=== PATIENT | female | born 1955 | race Caucasian/White ===

== ENCOUNTER → 2017-12-15 | Outpatient (CLI) | payer OTHER ==
--- NOTE | 2017-12-16 09:20 | MM ---
Reason for exam: screening (asymptomatic). Last mammogram was performed 2 years and 4 months ago. History: Patient is postmenopausal and had first child at age 31. Physical Findings: A clinical breast exam by your physician is recommended on an annual basis and results should be correlated with mammographic findings. MG Screening Mammo w CAD Bilateral CC and MLO view(s) were taken. XCCL view(s) were taken of the left breast. Prior study comparison: July 12, 2011, bilateral digital screening mammo w/CAD. The breast tissue is heterogeneously dense. This may lower the sensitivity of mammography. No significant changes when compared with prior studies. ASSESSMENT: Benign, BI-RAD 2 RECOMMENDATION: Routine screening mammogram of both breasts in 1 year.
--- NOTE | 2017-12-16 18:17 | BD ---
EXAMINATION TYPE: Axial Bone Density DATE OF EXAM: 12/15/2017 COMPARISON: NONE CLINICAL HISTORY: 62-year-old female disorder bone density, postmenopausal screening Height: 63 Weight: 134.4 FRAX RISK QUESTIONS: Alcohol (3 or more units per day): no Family History (Parent hip fracture): yes Glucocorticoids (More than 3mos): no (Ex: prednisone, prednisolone, methylprednisolone, dexamethasone, and hydrocortisone). History of Fracture in Adulthood: no Secondary Osteoporosis: 1. Type 1 Diabetes: no 2. Hyperthyroidism: no 3. Menopause before 45: yes 4. Malnutrition: no 5. Chronic liver disease: no Rheumatoid Arthritis: no Current Tobacco Use: yes RISK FACTORS HISTORY OF: Active: yes Diet low in dairy products/other sources of calcium: no Postmenopausal woman: age 39 Lost more than 2 inches in height since high school: yes MEDICATIONS: Thyroid Medications: thyroid Additional History: EXAM MEASUREMENTS: Bone mineral densitometry was performed using the [employer] System. Bone mineral density as measured about the Lumbar spine is: ----- L1-L4(G/cm2): 1.025 T Score Values are as follows: ----- L2: -1.9 ----- L3: -1.0 ----- L4: -0.4 ----- L1-L4: -1.3 Bone mineral density : baseline Bone mineral density about the R hip (g/cm2): 0.906 Bone mineral density about the L hip (g/cm2): 0.923 T Score values are as follows: -----R Neck: -0.9 -----L Neck: -0.8 -----R Total: -1.4 -----L Total: -1.2 Bone mineral density : baseline IMPRESSION: Osteopenia (T Score between -2.5 and -1). There is slightly increased risk of fracture and the patient may be considered for treatment. Re-Screen 2-5 years. NOTE: T-SCORE=SD OF THE YOUNG ADULT MEAN.
== END | disposition home or self-care (01) ==
LOC: RADMAMWWP 07:04
PROVIDERS: ATTEND Obstetrics & Gynecology
DX: Z12.31 Encounter for screening mammogram for malignant neoplasm of breast (principal); M85.80 Other specified disorders of bone density and structure, unspecified site
CPT/HCPCS: 77067; 77080

== ENCOUNTER 2020-08-26 18:04 | Emergency (ER) | payer OTHER ==
[2020-08-26 18:18] VITALS: TEMP 97.9
[2020-08-26] MEDS ORDERED: FLUORESCEIN STRIPS 1 MG STRIP RIGHT EYE STA (18:30)
[2020-08-26] MEDS ORDERED: PROPARACAINE 0.5% OPHTH DROPS 15 ML BTL RIGHT EYE STA (18:31)
[2020-08-26] MEDS ORDERED: ERYTHROMYCIN 5 MG/GM OPHTH OINT 1 GM TUBE RIGHT EYE STA (19:13)
[2020-08-26] MEDS ORDERED: DIPH,PERTUS(ACELL)TETVAC-LF 0.5 ML VIAL IM ONE (19:13)
--- NOTE | 2020-08-26 19:22 | ED ---
General Adult HPI - General Chief complaint: Eye Problems Stated complaint: R eye injury Time Seen by Provider: 08/26/20 18:21 Source: patient, RN notes reviewed Mode of arrival: ambulatory Limitations: no limitations - History of Present Illness Initial comments: 65-year-old female presents to the emergency room for chief complaint of right eye injury. Patient states she was playing with her son's dog when the back of its head hit her right eye. She states it is slightly painful and burning. Denies any visual changes. Denies any difficulty or pain with moving her eye. Denies any tenderness around the orbit.Patient has no other complaints at this time including shortness of breath, chest pain, abdominal pain, nausea or vomiting, headache, or visual changes. - Related Data Allergies Allergy/AdvReac Type Severity Reaction Status Date / Time codeine Allergy Rash/Hives Verified 08/26/20 18:19 Penicillins Allergy Rash/Hives Verified 08/26/20 18:19 Review of Systems ROS Statement: Those systems with pertinent positive or pertinent negative responses have been documented in the HPI. ROS Other: All systems not noted in ROS Statement are negative. Past Medical History Past Medical History: Thyroid Disorder History of Any Multi-Drug Resistant Organisms: None Reported Past Surgical History: No Surgical Hx Reported Past Psychological History: No Psychological Hx Reported Smoking Status: Current every day smoker Past Alcohol Use History: Rare Past Drug Use History: None Reported General Exam Limitations: no limitations General appearance: alert, in no apparent distress Head exam: Present: atraumatic Eye exam: Present: normal appearance, PERRL, EOMI, conjunctival injection (Conjunctival hemorrhage noted along the medial aspect of the right conjunctiva). Absent: scleral icterus, other (No hyphema. Pupil is round and reactive.) ENT exam: Present: normal exam Neck exam: Present: normal inspection, full ROM Respiratory exam: Present: normal lung sounds bilaterally. Absent: respiratory distress, wheezes Cardiovascular Exam: Present: regular rate, normal rhythm, normal heart sounds Course Vital Signs 08/26/20 18:16 Temperature 97.9 F Pulse Rate 95 Respiratory 18 Rate Blood Pressure 165/76 O2 Sat by Pulse 100 Oximetry Medical Decision Making - Medical Decision Making 65-year-old female presents to the emergency room for right eye pain. On exam patient does have subconjunctival hemorrhage noted to the medial aspect of the right eye as well as a burning sensation over the right eye. No tenderness along the orbit itself. No edema. Pupil is round and reactive. No teardrop pupil. No hyphema. Proparacaine was used to numb the eye and patient had resolution of the burning sensation. On examination with fluorescein and Wood's lamp she did have small abrasions noted at 12:00. Visual acuity was 20/20 OD 20/40 OS. Patient was given tetanus and erythromycin ointment for abrasions. Denies contact usage. Instructed to do warm compresses for subconjunctival hemorrhage. She will follow up with ophthalmology. She will return here for any worsening symptoms. Disposition Clinical Impression: Subconjunctival hemorrhage of right eye, Corneal abrasion Disposition: HOME SELF-CARE Condition: Good Instructions (If sedation given, give patient instructions): Corneal Abrasion (ED), Subconjunctival Hemorrhage (ED) Additional Instructions: Please use antibiotic ointment as directed. Apply warm compresses to the eye. Follow up with ophthalmology. If you have any worsening symptoms or visual changes return to the emergency room. Is patient prescribed a controlled substance at d/c from ED?: No Referrals: Tono Valenzuela MD [Primary Care Provider] - 1-2 days Gail Salmeron MD [STAFF PHYSICIAN] - 1-2 days Time of Disposition: 19:22
[2020-08-26 20:01] VITALS: BP 162/77; PULSE 62; RESP 20
== END 2020-08-26 20:01 | disposition home or self-care (01) ==
LOC: EC 18:04
DX: S05.01XA Injury of conjunctiva and corneal abrasion without foreign body, right eye, initial encounter (principal); H11.31 Conjunctival hemorrhage, right eye; F17.200 Nicotine dependence, unspecified, uncomplicated; Z88.0 Allergy status to penicillin; W54.1XXA Struck by dog, initial encounter
CPT/HCPCS: 90471; 90715; 99283

== ENCOUNTER → 2020-09-18 | Outpatient (CLI) | payer OTHER | END | disposition home or self-care (01) | CPT/HCPCS: 70480 ==

== ENCOUNTER 2022-03-22 23:47 | Observation (INO) | payer BC, OTHER ==
[2022-03-23] MEDS ORDERED: IPRATROPIUM-ALBUTEROL 3 ML NEB INHALATION STA (00:29)
[2022-03-23] MEDS ORDERED: diphenhydrAMINE 50 MG/ML 1 ML VIAL IVP STA (00:29)
[2022-03-23] MEDS ORDERED: DEXAMETHASONE SOD PHOSPHATE 10 MG/ML 1 ML VIAL IVP STA (00:29)
--- NOTE | 2022-03-23 01:08 | ED ---
SOB HPI - General Chief Complaint: Shortness of Breath Stated Complaint: Bronchitis Time Seen by Provider: 03/23/22 00:28 Source: patient, family, RN notes reviewed Mode of arrival: ambulatory Limitations: no limitations - History of Present Illness Initial Comments: This is a 66-year-old female who presents to the emergency department for difficulty breathing and tongue swelling. 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 She was cleaning this evening as she always does, when she started to feel like she couldn't breathe and subsequently felt like she had swelling in her tongue and throat, making it difficult to speak and swallow. Denies being around any new chemicals. She also denies any history of similar symptoms in the past. She has been on antibiotics for the last 3-4 days for bronchitis, as diagnosed by her primary care provider. Denies any coughing or chest pain. Denies any fevers, chills, sore throat, cough, chest pain, palpitations, abdominal pain, nausea, vomiting, diarrhea, back pain, or headaches. MD Complaint: shortness of breath Context: recent URI Treatments Prior to Arrival: none - Related Data Allergies Allergy/AdvReac Type Severity Reaction Status Date / Time codeine Allergy Rash/Hives Verified 03/23/22 00:10 Penicillins Allergy Rash/Hives Verified 03/23/22 00:10 Review of Systems ROS Statement: Those systems with pertinent positive or pertinent negative responses have been documented in the HPI. ROS Other: All systems not noted in ROS Statement are negative. Past Medical History Past Medical History: Thyroid Disorder History of Any Multi-Drug Resistant Organisms: None Reported Past Surgical History: No Surgical Hx Reported Past Psychological History: No Psychological Hx Reported Smoking Status: Current every day smoker Past Alcohol Use History: Rare Past Drug Use History: None Reported General Exam Limitations: no limitations General appearance: alert, in no apparent distress Head exam: Present: atraumatic, normocephalic, normal inspection ENT exam: Present: normal exam, mucous membranes dry, other (Mild pharyngeal erythema) Respiratory exam: Present: wheezes (Mild diffuse inspiratory and expiratory wheezing) Cardiovascular Exam: Present: regular rate, normal rhythm, normal heart sounds. Absent: systolic murmur, diastolic murmur, rubs, gallop, clicks Neurological exam: Present: alert, oriented X3, CN II-XII intact Psychiatric exam: Present: normal affect, normal mood Skin exam: Present: warm, dry, intact, normal color. Absent: rash Course Vital Signs 03/23/22 03/23/22 03/23/22 00:10 03:16 03:42 Temperature 97.4 F L Pulse Rate 81 96 92 Respiratory 16 18 Rate Blood Pressure 188/79 153/82 O2 Sat by Pulse 98 96 Oximetry 03/23/22 04:00 Temperature Pulse Rate 96 Respiratory Rate Blood Pressure O2 Sat by Pulse Oximetry Medical Decision Making - Medical Decision Making This is a 66-year-old female who presents to the emergency department for difficulty breathing and swallowing. Was pt. sent in by a medical professional or institution? @ -No Did you speak to anyone other than the patient for history? @ -Her son Did you review nursing and triage notes? @ -Agree, accurate with regards to the patient's symptoms. Were old charts reviewed? @ -No Differential Diagnosis? @ -Differential Dyspnea: Coronary syndrome, arrhythmia, tamponade, asthma, COPD, pulmonary embolism, pneumonia, pneumothorax, pulmonary effusion, anaphylaxis, diabetic ketoacidosis, flailed chest, pulmonary contusion, diaphragmatic rupture, anemia, neuromuscular, this is not meant to be an all-inclusive list. -Differential Dysphagia: Malignancy, infection, thyromegaly, Zenker diverticulum, esophageal stricture, esophageal spasm, scleroderma, ALS, MS, myasthenia gravis, CVA, Parkinson's, this is not meant to be an all-inclusive list. EKG interpreted by me (1pt min)? @ -Sinus rhythm. Ventricular rate 71 bpm, NV interval 152 ms, QRS duration 88 ms, QTC 411 ms. X-rays interpreted by me (1pt min.)? @ -My interpretation of the chest x-ray identifies no localized consolidations or infiltrates. My interpretation of the x-ray of the soft tissue of the neck identifies no narrowing of the trachea. What testing was considered but not performed? (CT, X-rays, U/S, labs)? Why? @ -None What meds were considered but not given? Why? @ -None Did you discuss the management of the patient with other professionals? @ -Yes, Dr. Turk, who accepts the patient for admission. Did you reconcile home meds? @ -Yes Was smoking cessation discussed for >3mins.? @ -No Was critical care preformed (if so, how long)? @ -No Were there social determinants of health that impacted care today? How? (Homelessness, low income, unemployed, alcoholism, drug addiction, transportation, low edu. Level, literacy, decrease access to med. care, residential, rehab)? @ -No Was there de-escalation of care discussed even if they declined? (Discuss DNR or withdrawal of care, Hospice)? @ -No What co-morbidities impacted this encounter? (DM, HTN, Smoking, COPD, CAD, Cancer, CVA, Hep., AIDS, mental health diagnosis, sleep apnea, morbid obesity)? @ -Hypothyroidism. Was patient admitted / discharged? @ -Lab work obtained and found to be nonactionable. Patient tested positive for influenza A. X-ray of the chest and soft tissue of the neck revealed no acute findings. On examination, the patient has dry mucous membranes and mild posterior pharyngeal erythema. Her physical examination is otherwise unremarkable. She has no swelling to the tongue or throat. However, she continues to complain of difficulty swallowing and talking. She was initially given IV Decadron and Benadryl along with a DuoNeb breathing treatment. States that her breathing did improve with this medication and she had mild improvement in the swallowing, however it continues to persist. Dr. Oliva evaluated the patient alongside myself as well, and she continued to state that she was scared and unable to talk or swallow. Given that the patient is telling us she is unable to swallow, will admit for observation and also treat her with IV Pepcid and Hurricane spray and administer an EpiPen to see if that offers any additional relief. Drug Therapy requiring intensive monitoring for toxicity (Heparin, Nitro, Insulin, Cardizem)? @ -None Were any procedures done? @ -None Diagnosis/symptom? @ -Dysphasia Acute, or Chronic, or Acute on Chronic? @ -Acute Uncomplicated (without systemic symptoms) or Complicated (systemic symptoms)? @ -Complicated Side effects of treatment? @ -None Exacerbation, Progression, or Severe Exacerbation] @ -Not applicable Poses a threat to life or bodily function? @ -Yes, this is impacting her ability to speak and swallow. This case was discussed in detail with the attending ED physician. Presentation, findings, and treatment plan discussed in detail as well. - Lab Data Result diagrams: 03/23/22 00:51 03/23/22 00:51 Lab Results 03/23/22 03/23/22 03/23/22 Range/Units 00:46 00:51 00:51 WBC 10.2 (3.8-10.6) k/uL RBC 4.96 (3.80-5.40) m/uL Hgb 14.6 (11.4-16.0) gm/dL Hct 42.4 (34.0-46.0) % MCV 85.4 (80.0-100.0) fL MCH 29.4 (25.0-35.0) pg MCHC 34.4 (31.0-37.0) g/dL RDW 12.4 (11.5-15.5) % Plt Count 469 H (150-450) k/uL MPV 8.0 Neutrophils % 76 % Lymphocytes % 13 % Monocytes % 9 % Eosinophils % 1 % Basophils % 1 % Neutrophils # 7.7 (1.3-7.7) k/uL Lymphocytes # 1.3 (1.0-4.8) k/uL Monocytes # 0.9 (0-1.0) k/uL Eosinophils # 0.1 (0-0.7) k/uL Basophils # 0.1 (0-0.2) k/uL PT 10.0 (9.0-12.0) sec INR 0.9 (<1.2) APTT 25.4 (22.0-30.0) sec Sodium (137-145) mmol/L Potassium (3.5-5.1) mmol/L Chloride (98-107) mmol/L Carbon Dioxide (22-30) mmol/L Anion Gap mmol/L BUN (7-17) mg/dL Creatinine (0.52-1.04) mg/dL Est GFR (CKD-EPI)AfAm (>60 ml/min/1.73 sqM) Est GFR (CKD-EPI)NonAf (>60 ml/min/1.73 sqM) Glucose (74-99) mg/dL Plasma Lactic Acid Willie (0.7-2.0) mmol/L Calcium (8.4-10.2) mg/dL Total Bilirubin (0.2-1.3) mg/dL AST (14-36) U/L ALT (4-34) U/L Alkaline Phosphatase (38-126) U/L Troponin I (0.000-0.034) ng/mL Total Protein (6.3-8.2) g/dL Albumin (3.5-5.0) g/dL TSH (0.465-4.680) mIU/L Urine Color Urine Appearance (Clear) Urine pH (5.0-8.0) Ur Specific Buhl (1.001-1.035) Urine Protein (Negative) Urine Glucose (UA) (Negative) Urine Ketones (Negative) Urine Blood (Negative) Urine Nitrite (Negative) Urine Bilirubin (Negative) Urine Urobilinogen (<2.0) mg/dL Ur Leukocyte Esterase (Negative) Urine RBC (0-5) /hpf Urine WBC (0-5) /hpf Ur Squamous Epith Cells (0-4) /hpf Urine Bacteria (None) /hpf Influenza Type A (PCR) Detected A (Not Detectd) Influenza Type B (PCR) Not Detected (Not Detectd) RSV (PCR) Not Detected (Not Detectd) SARS-CoV-2 (PCR) Not Detected (Not Detectd) 03/23/22 03/23/22 03/23/22 Range/Units 00:51 00:51 00:51 WBC (3.8-10.6) k/uL RBC (3.80-5.40) m/uL Hgb (11.4-16.0) gm/dL Hct (34.0-46.0) % MCV (80.0-100.0) fL MCH (25.0-35.0) pg MCHC (31.0-37.0) g/dL RDW (11.5-15.5) % Plt Count (150-450) k/uL MPV Neutrophils % % Lymphocytes % % Monocytes % % Eosinophils % % Basophils % % Neutrophils # (1.3-7.7) k/uL Lymphocytes # (1.0-4.8) k/uL Monocytes # (0-1.0) k/uL Eosinophils # (0-0.7) k/uL Basophils # (0-0.2) k/uL PT (9.0-12.0) sec INR (<1.2) APTT (22.0-30.0) sec Sodium 135 L (137-145) mmol/L Potassium 4.0 (3.5-5.1) mmol/L Chloride 98 (98-107) mmol/L Carbon Dioxide 27 (22-30) mmol/L Anion Gap 10 mmol/L BUN 27 H (7-17) mg/dL Creatinine 0.69 (0.52-1.04) mg/dL Est GFR (CKD-EPI)AfAm >90 (>60 ml/min/1.73 sqM) Est GFR (CKD-EPI)NonAf >90 (>60 ml/min/1.73 sqM) Glucose 97 (74-99) mg/dL Plasma Lactic Acid Willie 1.1 (0.7-2.0) mmol/L Calcium 9.8 (8.4-10.2) mg/dL Total Bilirubin 0.6 (0.2-1.3) mg/dL AST 74 H (14-36) U/L ALT 90 H (4-34) U/L Alkaline Phosphatase 83 (38-126) U/L Troponin I <0.012 (0.000-0.034) ng/mL Total Protein 7.7 (6.3-8.2) g/dL Albumin 4.4 (3.5-5.0) g/dL TSH 4.010 (0.465-4.680) mIU/L Urine Color Urine Appearance (Clear) Urine pH (5.0-8.0) Ur Specific Buhl (1.001-1.035) Urine Protein (Negative) Urine Glucose (UA) (Negative) Urine Ketones (Negative) Urine Blood (Negative) Urine Nitrite (Negative) Urine Bilirubin (Negative) Urine Urobilinogen (<2.0) mg/dL Ur Leukocyte Esterase (Negative) Urine RBC (0-5) /hpf Urine WBC (0-5) /hpf Ur Squamous Epith Cells (0-4) /hpf Urine Bacteria (None) /hpf Influenza Type A (PCR) (Not Detectd) Influenza Type B (PCR) (Not Detectd) RSV (PCR) (Not Detectd) SARS-CoV-2 (PCR) (Not Detectd) 03/23/22 Range/Units 00:59 WBC (3.8-10.6) k/uL RBC (3.80-5.40) m/uL Hgb (11.4-16.0) gm/dL Hct (34.0-46.0) % MCV (80.0-100.0) fL MCH (25.0-35.0) pg MCHC (31.0-37.0) g/dL RDW (11.5-15.5) % Plt Count (150-450) k/uL MPV Neutrophils % % Lymphocytes % % Monocytes % % Eosinophils % % Basophils % % Neutrophils # (1.3-7.7) k/uL Lymphocytes # (1.0-4.8) k/uL Monocytes # (0-1.0) k/uL Eosinophils # (0-0.7) k/uL Basophils # (0-0.2) k/uL PT (9.0-12.0) sec INR (<1.2) APTT (22.0-30.0) sec Sodium (137-145) mmol/L Potassium (3.5-5.1) mmol/L Chloride (98-107) mmol/L Carbon Dioxide (22-30) mmol/L Anion Gap mmol/L BUN (7-17) mg/dL Creatinine (0.52-1.04) mg/dL Est GFR (CKD-EPI)AfAm (>60 ml/min/1.73 sqM) Est GFR (CKD-EPI)NonAf (>60 ml/min/1.73 sqM) Glucose (74-99) mg/dL Plasma Lactic Acid Willie (0.7-2.0) mmol/L Calcium (8.4-10.2) mg/dL Total Bilirubin (0.2-1.3) mg/dL AST (14-36) U/L ALT (4-34) U/L Alkaline Phosphatase (38-126) U/L Troponin I (0.000-0.034) ng/mL Total Protein (6.3-8.2) g/dL Albumin (3.5-5.0) g/dL TSH (0.465-4.680) mIU/L Urine Color Light Yellow Urine Appearance Clear (Clear) Urine pH 6.5 (5.0-8.0) Ur Specific Buhl 1.007 (1.001-1.035) Urine Protein Negative (Negative) Urine Glucose (UA) Negative (Negative) Urine Ketones Negative (Negative) Urine Blood Negative (Negative) Urine Nitrite Negative (Negative) Urine Bilirubin Negative (Negative) Urine Urobilinogen <2.0 (<2.0) mg/dL Ur Leukocyte Esterase Trace H (Negative) Urine RBC <1 (0-5) /hpf Urine WBC 2 (0-5) /hpf Ur Squamous Epith Cells 1 (0-4) /hpf Urine Bacteria Rare H (None) /hpf Influenza Type A (PCR) (Not Detectd) Influenza Type B (PCR) (Not Detectd) RSV (PCR) (Not Detectd) SARS-CoV-2 (PCR) (Not Detectd) - Radiology Data Radiology results: report reviewed, image reviewed Disposition Clinical Impression: Dysphagia, Influenza A Disposition: ADMITTED IP TO THIS HOSP Referrals: Tono Valenzuela MD [Primary Care Provider] - 1-2 days
[2022-03-23 01:17] LABS: Basophils # (A) 0.1 k/uL (0-0.2); Basophils % (A) 1 %; Eosinophils # (A) 0.1 k/uL (0-0.7); Eosinophils % (A) 1 %; HCT 42.4 % (34.0-46.0); HGB 14.6 gm/dL (11.4-16.0); Lymphocytes # (A) 1.3 k/uL (1.0-4.8); Lymphocytes % (A) 13 %; MCH 29.4 pg (25.0-35.0); MCHC 34.4 g/dL (31.0-37.0); MCV 85.4 fL (80.0-100.0); Monocytes # (A) 0.9 k/uL (0-1.0); Monocytes % (A) 9 %; Neutrophils # (A) 7.7 k/uL (1.3-7.7); Neutrophils % (A) 76 %; Platelet Count 469 k/uL (150-450); RBC 4.96 m/uL (3.80-5.40); RDW 12.4 % (11.5-15.5); WBC 10.2 k/uL (3.8-10.6)
[2022-03-23 01:31] LABS: INR 0.9 (<1.2); Partial Thromboplastin Time 25.4 sec (22.0-30.0)
--- NOTE | 2022-03-23 01:34 | XR ---
EXAMINATION TYPE: XR chest 2V DATE OF EXAM: 03/23/2022 COMPARISON: NONE HISTORY: Short of breath TECHNIQUE: 2 view FINDINGS: There is no heart failure nor confluent pneumonic infiltrate. There is slight coarsening of interstitial markings. No pleural effusion. There are no hilar masses. IMPRESSION: Mild pulmonary fibrotic changes. Normal heart.
--- NOTE | 2022-03-23 01:35 | XR ---
EXAMINATION TYPE: XR soft tissue neck DATE OF EXAM: 03/23/2022 COMPARISON: NONE HISTORY: Swollen throat TECHNIQUE: 2 views FINDINGS: Cervical vertebra have fairly normal alignment. There is disc space narrowing at C5-6 with spurring. No compression fracture. Posterior elements are intact. No cervical ribs. Epiglottis is normal. Subglottic trachea is normal. Prevertebral soft tissues are not enlarged. IMPRESSION: Negative cervical soft tissue exam. Spondylosis at C5-6.
[2022-03-23 01:37] LABS: Appearance,Urine Clear (Clear); Bacteria,Urine Rare /hpf; Bilirubin,Urine Negative (Negative); Blood,Urine Negative (Negative); Color,Urine Light Yellow; Glucose,Urine (UA) Negative (Negative); Ketones,Urine Negative (Negative); Leukocyte Esterase,Urine Trace (Negative); Nitrite,Urine Negative (Negative); PH, Urine 6.5 (5.0-8.0); Protein,Urine Negative (Negative); RBC,Urine <1 /hpf (0-5); Specific Gravity,Urine 1.007 (1.001-1.035); Squamous Epithelial Cell,Urine 1 /hpf (0-4); Urobilinogen,Urine <2.0 mg/dL (<2.0); WBC,Urine 2 /hpf (0-5)
[2022-03-23 01:53] LABS: ALT 90 U/L (4-34); AST 74 U/L (14-36); African American GFR (CKD) >90 (>60 ml/min/1.73 sqM); Albumin 4.4 g/dL (3.5-5.0); Alkaline Phosphatase 83 U/L (38-126); Anion Gap 10 mmol/L; Blood Urea Nitrogen 27 mg/dL (7-17); Calcium 9.8 mg/dL (8.4-10.2); Carbon Dioxide 27 mmol/L (22-30); Chloride 98 mmol/L (98-107); Glucose 97 mg/dL (74-99); Non-African American GFR(CKD) >90 (>60 ml/min/1.73 sqM); Sodium 135 mmol/L (137-145); Total Bilirubin 0.6 mg/dL (0.2-1.3); Total Protein 7.7 g/dL (6.3-8.2)
[2022-03-23 03:42] VITALS: RESP 18
[2022-03-23] MEDS ORDERED: FAMOTIDINE 20 MG/2 ML VIAL IV STA (04:14)
[2022-03-23] MEDS ORDERED: BENZOCAINE SPRAY 1 CAN MUCOUS MEM PRN (04:20)
[2022-03-23] MEDS ORDERED: NALOXONE 0.4 MG/ML 1 ML VIAL IV PRN (04:22)
[2022-03-23] MEDS ORDERED: ONDANSETRON 4 MG/2 ML VIAL IVP PRN (04:22)
[2022-03-23] MEDS ORDERED: KETOROLAC 15 MG/ML 1 ML VIAL IVP PRN (04:22)
[2022-03-23] MEDS ORDERED: ACETAMINOPHEN TAB 325 MG TAB PO PRN (04:22)
[2022-03-23] MEDS ORDERED: SODIUM CHLORIDE 0.9% 500 ML 500 ML IV ONE (04:59)
[2022-03-23] MEDS ORDERED: SODIUM CHLORIDE 0.9% 1,000 ML IV SCH (05:00)
--- NOTE | 2022-03-23 05:22 | P.HPIM ---
History of Present Illness H&P Date: 03/23/22 Chief Complaint: dysphagia 66 year old female with hypothyroid patient comes in due to sudden onset difficulty swallowing and speaking this evening. 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 she denies any similar symptoms in the past. she was diagnosed with bronchitis about a week ago, for symptoms of URI. she has been on antibiotics for the past few days . however, today she felt her throat is tight and her tongue is heavy and could not speak or swallow , denies any odynophagia, hemoptysis , or weight loss. denies any long history of GERD. she denies any drooling or difficulty breathing. she suddenly could not speak, and felt her throat dry, and when tried to take a sip of water, she found it very difficult to swallow and giving her a chocking sensation . despite receiving some treatment in the ED , she noticed no improvement , and feels very scared to go back home alone. blood work overall unremarkable , CXR and xray of the neck unremarkable patient son at bedside , providing most of the history as patient unable to speak clearly case discussed with ED doc and with ED PA , they felt she might have had an allergic reaction , despite her tongue and throat looking almost normal with no swelling, however, she was given benadryl , pepcid , steroids and epi. patient tested positive for influenza A patient is a daily smoker, denies illicit drugs or heavy alcohol Review of Systems Pertinent positives as noted in HPI. All other systems were reviewed and are negative Past Medical History Past Medical History: Thyroid Disorder History of Any Multi-Drug Resistant Organisms: None Reported Past Surgical History: No Surgical Hx Reported Past Psychological History: No Psychological Hx Reported Smoking Status: Current every day smoker Past Alcohol Use History: Rare Past Drug Use History: None Reported - Past Family History family Additional Family Medical History / Comment(s): no cancer in the family Medications and Allergies Allergies Allergy/AdvReac Type Severity Reaction Status Date / Time codeine Allergy Rash/Hives Verified 03/23/22 00:10 Penicillins Allergy Rash/Hives Verified 03/23/22 00:10 Physical Exam Vitals: Vital Signs Temp Pulse Resp BP Pulse Ox 03/23/22 04:00 96 03/23/22 03:42 92 03/23/22 03:16 96 18 153/82 96 03/23/22 00:10 97.4 F L 81 16 188/79 98 Intake and Output 03/22/22 03/22/22 03/23/22 14:59 22:59 06:59 Other: Weight 58.967 kg Constitutional: No acute distress, difficulty speaking Eyes: Anicteric sclerae, moist conjunctiva, Pupils equal round reactive to light ENMT: NC/AT Oropharynx with erythema, no swelling Neck: Supple, no stridor no masses, or JVD No carotid bruits No thyromegaly Lungs: Clear to auscultation Clear to percussion Normal respiratory effort, no accessory muscle use Cardiovascular: Heart regular in rate and rhythm, No murmurs, gallops, or rubs No peripheral edema Abdominal: Soft Nontender, no guarding, rebound or rigidity Abdomen moving with respiration Normoactive bowel sounds No hepatomegaly, No splenomegaly No palpable mass No abdominal wall hernia noted Skin: Normal temperature, tone, texture, turgor No induration No subcutaneous nodules No rash, lesions No ulcers Extremities: No digital cyanosis No clubbing Pedal pulses intact and symmetrical Radial pulses intact and symmetrical No calf tenderness Psychiatric: Alert and oriented to person, place and time Appropriate affect fair judgement Neuro Muscles Strength 5/5 in all 4 extremities Sensation to light touch grossly present throughout Cranial nerves II-XII grossly intact No focal sensory deficits Lymphatics: palpable cervical lymph nodes Results CBC & Chem 7: 03/23/22 00:51 03/23/22 00:51 Labs: Abnormal Lab Results - Last 24 Hours (Table) 03/23/22 03/23/22 03/23/22 Range/Units 00:46 00:51 00:51 Plt Count 469 H (150-450) k/uL Sodium 135 L (137-145) mmol/L BUN 27 H (7-17) mg/dL AST 74 H (14-36) U/L ALT 90 H (4-34) U/L Ur Leukocyte Esterase (Negative) Urine Bacteria (None) /hpf Influenza Type A (PCR) Detected A (Not Detectd) 03/23/22 Range/Units 00:59 Plt Count (150-450) k/uL Sodium (137-145) mmol/L BUN (7-17) mg/dL AST (14-36) U/L ALT (4-34) U/L Ur Leukocyte Esterase Trace H (Negative) Urine Bacteria Rare H (None) /hpf Influenza Type A (PCR) (Not Detectd) Assessment and Plan Assessment: 66 year old female with thyroid disorder, diagnosed with bronchitis about 5-7 days ago , however, today suddenly , she started experiencing difficulty speaking and swallowing water. upon presentation she was found to have influenza A positive, pharyngitis with erythema of the oropharynx but no swelling of the tongue or mucus membranes, no drooling, no stridors. When asked to swallow water, she could not and started spitting it out . her voiced is muffled. most of the history obtained by speaking with the son at bedside. case discussed with the ED , who treated her for possible allergy with benadryl , pepcid and steriods. patient admitted under observation await ENT evaluation with concerns regarding progression into airway compromise or aspiration admitted under observation acute pharyngitis dysphagia with difficulty swallowing oral liquids influenza A infection plan NPO ENT consultation IVF hydration with normal saline monitor airways monitoring specialist symptomatic control of influenza A , tylenol for fever. patient out of the window to start tamiflu continue supportive care full code DVT PPX SCDs
--- NOTE | 2022-03-23 09:33 | P.DS ---
Providers Date of admission: 03/23/22 04:23 Expected date of discharge: 03/23/22 Attending physician: Nagi Turk MD Consults: 03/23/22 05:00 Consult Physician Routine Consulting Provider: Dany Bruce Consult Reason/Comments: dysphagia, pharyngitis Do you want consulting provider notified?: Yes Primary care physician: [facility] Course: Admitting diagnoses: Acute pharyngitis Influenza A Discharge diagnoses: Influenza A Acute pharyngitis COPD exacerbation Hypothyroid Hospital course: 66 year old female with hypothyroid. Patient came in due to sudden onset difficulty swallowing and speaking this evening. 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 She denied any similar symptoms in the past. she was diagnosed with bronchitis about a week ago, for symptoms of URI. She has been on antibiotics for the past few days. However, on admission she felt her throat is tight and her tongue is heavy and could not speak or swallow. Denied any odynophagia, hemoptysis , or weight loss. Denied any long history of GERD. she denies any drooling or difficulty breathing. Blood work overall unremarkable , CXR and xray of the neck unremarkable. After treatment with IV dexamethasone, EpiPen, and Benadryl patient is speaking and acting appropriately. Patient is very eager to go home and is feeling better. Patient tested positive for influenza A and will be treated with prednisone and Tamiflu. Patient does have expiratory wheezing on exam and likely has underlying COPD. Patient is a daily smoker, denies illicit drugs or heavy alcohol. She will also be provided a prescription for an EpiPen, Benadryl and Pepcid for any type of ALLERGIC reaction. General: [non toxic], [no distress], [appears at stated age] Derm: [warm], [dry] Head: [atraumatic], [normocephalic], [symmetric] NO SWELLING IN THROAT Eyes: [EOMI], [no lid lag], [anicteric sclera] Mouth: [no lip lesion], [mucus membranes moist] Cardiovascular: [S1S2 reg], [no murmur], [positive posterior tibial pulse bilateral], Lungs: [Bilateral expiratory wheezing , [no accessory muscle use] Abdominal: [soft], [ nontender to palpation], [no guarding], [no appreciable organomegaly] Ext: [no gross muscle atrophy], [no edema], [no contractures] Neuro: [ CN II-XI grossly intact], [no focal neuro deficits] Psych: [Alert], [oriented], [appropriate affect] Follow-up with PCP in 2-3 days Disposition: Home Activity: As tolerated Diet: Regular Condition: Stable Patient Condition at Discharge: Fair Plan - Discharge Summary New Discharge Prescriptions: New diphenhydrAMINE [Benadryl] 25 mg PO TID PRN #90 capsule PRN Reason: Allergic Reaction Benzocaine Wallace [Hurricaine Wallace] 1 applic TOPICAL TID #1 each predniSONE See Rx Instructions .ROUTE .COMPLEX #64 tab EPINEPHrine (Auto Inject) [Epipen] 0.3 mg IM ONCE PRN #2 each PRN Reason: Anaphylaxis Benzocaine Wallace [Hurricaine Wallace] 1 spray MUCOUS MEM QID PRN #1 each PRN Reason: Mouth Irritation Oseltamivir [Tamiflu] 75 mg PO Q12HR 5 Days #10 cap Discharge Medication List Benzocaine Wallace [Hurricaine Wallace] 1 applic TOPICAL TID #1 each 03/23/22 [Rx] Benzocaine Wallace [Hurricaine Wallace] 1 spray MUCOUS MEM QID PRN #1 each 03/23/22 [Rx] EPINEPHrine (Auto Inject) [Epipen] 0.3 mg IM ONCE PRN #2 each 03/23/22 [Rx] Oseltamivir [Tamiflu] 75 mg PO Q12HR 5 Days #10 cap 03/23/22 [Rx] diphenhydrAMINE [Benadryl] 25 mg PO TID PRN #90 capsule 03/23/22 [Rx] predniSONE See Rx Instructions .ROUTE .COMPLEX #64 tab 03/23/22 [Rx] Follow up Appointment(s)/Referral(s): Tono Valenzuela MD [Primary Care Provider] - 1-2 days
[2022-03-23] MEDS ORDERED: methylPREDNISolone SOD SUCCI 125 MG/2 ML VIAL IM ONE (12:02)
[2022-03-23] MEDS ORDERED: methylPREDNISolone SOD SUCCIN 125 MG in SODIUM CHLORIDE 0.9% 100 ML IVPB STA (13:49)
[2022-03-23] MEDS ORDERED: methylPREDNISolone SOD SUCCI 125 MG/2 ML VIAL IV STA (13:53)
[2022-03-23 13:59] VITALS: BP 150/79; PULSE 79; TEMP 97.7
== END 2022-03-23 14:00 | disposition home or self-care (01) ==
LOC: EC 23:47 → 6NMEDSUR 03-23 04:23
PROVIDERS: ADMIT Internal Medicine; ATTEND Internal Medicine
DX: J10.1 Influenza due to other identified influenza virus with other respiratory manifestations (principal); R13.10 Dysphagia, unspecified; J44.1 Chronic obstructive pulmonary disease with (acute) exacerbation; E03.9 Hypothyroidism, unspecified; F17.200 Nicotine dependence, unspecified, uncomplicated; Z20.822 Contact with and (suspected) exposure to COVID-19; Z88.0 Allergy status to penicillin; Z88.5 Allergy status to narcotic agent
CPT/HCPCS: 96361; 96372; 96374; 96375; 99285; 36415; 94640; 93005; 80053; 84443; 83605; 84484; 85025; 85610; 85730; 81001; 87636; 70360; 71046; G0378; J0171; J1200; J1100; J2930